=== PATIENT | female | born 1995 | race Caucasian/White ===

== ENCOUNTER 2024-03-20 13:20 | Outpatient (OUT) | payer MEDICAID, SELFPAY ==
[2024-03-20 14:44] LABS: Thyroid Stimulating Hormone 1.683 uIU/mL (0.358-3.740)
[2024-03-20 14:57] LABS: Free T4 1.15 ng/dL (0.76-1.46)
[2024-03-20 16:05] LABS: Estimated Average Glucose 126 mg/dL
== END 2024-03-20 13:21 | disposition home or self-care (01) ==
LOC: LAB 13:24
PROVIDERS: PCP Family Medicine; Visit Provider Obstetrics & Gynecology
DX: E28.2 Polycystic ovarian syndrome (principal); E88.819 Insulin resistance, unspecified
CPT/HCPCS: 36415; 83036; 84439; 84443

== ENCOUNTER 2024-05-21 15:26 | Outpatient (OUT) | payer MEDICAID, SELFPAY ==
--- OUTSIDE RECORDS SUMMARY | 2024-05-21 15:31 | XMS_ITS | CCD ---
Author Organization [facility] Care Team Providers Care Mainspring Winder Name Role Phone NON STAFF Primary Care Provider Unavailabl e MD Jalen Irving Jr Emergency Provider Blunt, Matty M Attending Unavailable Blunt, Matty M Primary Care Unavailable Blunt, Matty M Attending Unavailable Blunt, Matty M Primary Care Unavailable Abraham Blanco Attending Unavailable Blunt, Matty M Primary Care Unavailable Blunt, Matty M Attending Unavailable Blunt, Matty M Primary Care Unavailable ISAURA JACKMAN Attending Unavailable ISAURA JACKMAN Attending Unavailable ISAURA JACKMAN Attending Unavailable LUZ OCAMPO Attending Unavailable DO Isaura Jackman Attending Provider Jalen Irving Jr Attending Unavailable NON STAFF Primary Care Unavailable Jalen Irving Jr Admitting Unavailable NON STAFF Primary Care Unavailable Isaura Jackman Admitting Unavailable Isaura Jackman Attending Unavailable Medications Current Medications Medication Drug Class(es) Dates Sig (Normalized) Sig (Original) hydrOXYzine hydrochloride 25 mg oral tablet (2 sources) Antihistamine Start: 01-24-2024 take 25 mg by mouth every six hours Hydroxyzine Hcl Active 25 MG PO Q6H 30 January 24, 2024 12:00am predniSONE 20 mg oral tablet (2 sources) Start: 01-24-2024 take 40 mg by mouth once daily in the morning Prednisone Active 40 MG PO Every morning 10 5 January 24, 2024 12:00am administer with food or milk Problems Active Problems Problem Classification Problem Date Documented Da te Episodic/Chronic Other endocrine disorders (1 source) Polycystic ovarian syndrome; Translations: [Polycystic ovarian syndrome] Onset: 04-19-2024 Chronic Past or Other Problems Problem Classification Problem Date Documented Da te Episodic/Chronic Allergic reactions (3 sources) Urticaria; Translations: [Urticaria, unspecified] Onset: 01-24-2024 01-24-2024 Episodic Results Test Name Value Interpretation Reference Range Facil casey Progesteroneon 04-19-2024 Progesterone 6.7 ng/mL Normal . [facility] Comment on above: Result Comment: Foll icular phase 0.1 - 0.9 Luteal phase 1.8 - 23.9 Ovulation phase 0.1 - 12.0 First trimester 11.0 - 44.3 Second trimester 25.4 - 83.3 Third trimester 58.7 - 214.0 Postmenopausal 0.0 - 0.1 Performed at: [facility] [address] [id number] Test Director: Sterling Dickson PhD, Phone: [phone] PERFORMED BY: [address] [place] [place] [address] PATHOLOGIST RAPIER INSERTION LOOM FIXER SABRINA GEE M.D. Performed By: #### P DORINA #### [facility] , Vital Signs Date Time Vital Sign Value Performing Clinician Eric schmidt 01-24-2024 02:18-0400 Body height 170.18 cm [facility] 01-24-2024 02:18-0400 Body temperature 98.5 [degF] [facility] 01-24-2024 02:18-0400 Body weight 136.3 kg [facility] 01-24-2024 02:18-0400 Diastolic blood pressure 59 mm[Hg] [facility] 01-24-2024 02:18-0400 Heart rate 84 /min [facility] 01-24-2024 02:18-0400 Respiratory rate 18 /min [facility] 01-24-2024 02:18-0400 SaO2% (BldA) [Mass fraction] 97 % [facility] 01-24-2024 02:18-0400 Systolic blood pressure 131 mm[Hg] [facility] Encounters Encounter Date Encounter Type Care Provider Facility Start: 04-19-2024 End: 04-19-2024 Patient encounter procedure [facility] [place] Work Phone: Start: 04-19-2024 End: 04-19-2024 ambulatory NON STAFF [facility] Work Phone: Start: 04-17-2024 End: 04-17-2024 ambulatory ISAURA YUE Not Available Start: 03-20-2024 End: 03-20-2024 ambulatory ISAURA YUE Not Available Start: 02-20-2024 End: 02-20-2024 ambulatory Matty M Blunt Facility:[facility] Start: 01-29-2024 End: 01-29-2024 ambulatory ISAURA YUE Not Available Start: 01-24-2024 End: 01-24-2024 Emergency department patient visit [facility] Work Phone: Start: 08-30-2023 End: 08-30-2023 ambulatory LUZ OCAMPO Not Available Start: 07-12-2023 End: 07-12-2023 ambulatory Matty M Blunt Facility:[facility] Start: 06-01-2023 End: 06-01-2023 ambulatory Abraham Blanco Facility:[facility] Plan of Treatment Date Care Activity Detail Author Patient Education Hives [facility] Work Phone: Patient referral [facility] Work Phone: Progesterone [Mass/v olume] in Serum or Plasma [facility] enter Payers Date Payer Category Payer Self-pay [id number] 2023 Private Health Insurance 2022 Medicaid [id number] 2019 Unknown [id number] 1997 Unknown [id number] 1997 Unknown [id number] 1997 Unknown [id number] [id number] 1997 Unknown [id number] 1997 Unknown [id number] [id number] 1997 Unknown [id number] [id number] 1997 Unknown [id number] [id number] 1997 Unknown [id number] [id number] Private Health Insurance [employer] [id number] Unknown [place] BC/BS [id number] Unknown [id number] Unknown [id number] Social History Date Type Detail Facility Start: 01-24-2024 End: 02-20-2024 Tobacco smoking status NHIS Never smoked tobacco (finding) [facility] Start: 1995 Sex Assigned At Female F [facility] Evaluation note Note Date & Type Note Facility Evaluation note No assessment information availa [facility] Work Phone: Chief Complaint and Reason for Visit Chief Complaint hives Chief Complaint hives See order Advance Directives No Advanced Directives Records Found Advance Directive Response Recorded Date/ Time Advance Directives No December 06 1:47pm Summary Purpose Family History No Family History Records FoundNo Family History Records FoundNo Family History Records Found Additional Source Comments Care Teams (unrecognized sec tion and content) Team Status: Active Member Role Status Dates NON STAFF Primary Care Provider Active Team Status: Inactive Member Role Status Dates NON STAFF Primary Care Provider Active Start: January 24, 2024 End: January 24, 2024 Jalen Irving Jr, MD Emergency Provider Active Start: January 24, 2024 End: January 24, 2024 Team Status: Inactive Member Role Status Dates NON STAFF Primary Care Provider Active Start: April 19, 2024 End: April 19, 2024 Isaura Jackman DO Attending Provider Active Start : April 19, 2024 End: April 19, 2024 Goals (unrecognized section and content) Goals may be documented in a n alternate sectionGoals may be documented in an alternate section INFORMATION SOURCE (unrecogn ized section and content) DATE CREATED AUTHOR 02/27/2024 [facility] DATE CREATED AUTHOR AUTHOR'S ORGANIZ ATION 04/19/2024 [facility] EPIC DATE CREATED AUTHOR AUTHOR'S ORGANIZ ATION 04/28/2024 [facility] y[facility] Group FOR RECORDS PERTAINING TO PATIENTS WHO ARE OR HAVE BEEN ENROLLED IN A CHEMICAL DEPENDENCY/SUBSTANCEABUSE PROGRAM, SOME INFORMATION MAY BE OMITTED. This clinical summary was aggregated from multiple sources. Caution should be exercised in using it in the provision of clinical care. This summary normalizes information from multiple sources, and as a consequence, information in this document may materially change the coding, format and clinical context of patient data. In addition, data may be omitted in some cases. CLINICAL DECISIONS SHOULD BE BASED ON THE PRIMARY CLINICAL RECORDS. [facility] [employer] [facility]. provides no warranty or guarantee of the accuracy or completeness of information in this document.
[2024-05-23 08:12] LABS: Progesterone 12.9 ng/mL (.)
== END 2024-05-21 15:27 | disposition home or self-care (01) ==
LOC: LAB 15:28
PROVIDERS: PCP Family Medicine; Visit Provider Obstetrics & Gynecology
DX: E28.2 Polycystic ovarian syndrome (principal); N97.0 Female infertility associated with anovulation
CPT/HCPCS: 36415; 84144

== ENCOUNTER 2024-07-28 22:00 | Outpatient (REF) | payer MEDICAID, SELFPAY ==
--- OUTSIDE RECORDS SUMMARY | 2024-07-28 22:04 | XMS_ITS | CCD ---
Author Organization [facility] Care Team Providers Care Technology Infusion Specialist Name Role Phone NON STAFF Primary Care Provider Unavailvaishali e MD Jalen Irving Jr Emergency Provider Matty Amato Attending Unavailable Blunt, Matty Caruso Primary Care Unavailable Blunt, Matty Caruso Attending Unavailable Blunt, Matty Caruso Primary Care Unavailable Abraham Blanco Attending Unavailable Blunt, Matty Caruso Primary Care Unavailable Blunt, Matty Caruso Attending Unavailable Lm, Matty Caruso Primary Care Unavailable DO Isaura Jackman Attending Provider Matty Amato MD Primary Care Provider [phone] LUZ OCAMPO Attending Unavailable ISAURA JACKMAN Attending Unavailable ISAURA JACKMAN Attending Unavailable ISAURA JACKMAN Attending Unavailable SADA DYE Attending Unavailable Jalen Irving Jr Admitting Unavailable NON STAFF Primary Care Unavailable Jalen Irving Jr Attending Unavailable Isaura Jackman Attending Unavailable Isaura Jackman Admitting Unavailable NON STAFF Primary Care Unavailable Ramon Pozo Attending Unavailab le Ramon Pozo Admitting Unavailab le NON STAFF Primary Care Unavailable Medications Current Medications Medication Drug Class(es) Dates Sig (Normalized) Sig (Original) hydrOXYzine hydrochloride 25 mg oral tablet (6 sources) Antihistamine Start: 01-24-2024 hydrOXYzine HCl (Atarax) 25 MG tablet Take 12.5 mg by mouth 1 (one) time 01/24/2024 Active Start: 01-24-2024 take 25 mg by mouth every six hours Hydroxyzine Hcl Active 25 MG PO Q6H January 24, 2024 12:00am 24 hr metFORMIN hydrochloride 500 mg extended release oral tablet (4 sources) Biguanide Start: 03-04-2024 End: 03-04-2025 take 1 tablet by mouth every twenty-four hours at mealtime metFORMIN XR (Glucophage-XR) 500 MG 24 hr tablet Indications: Weight gain , Insulin resistance Take 1 tablet (500 mg) by mouth in the evening. Take with meals Do not crush, chew, or split. 30 tablet 11 03/04/2024 03/04/2025 Active pantoprazole 40 mg delayed release oral tablet (4 sources) Proton Pump Inhibitor take 1 tablet by mouth in the morning pantoprazole (ProtoNix) 40 MG EC tablet Take 40 mg by mouth in the morning. Active phentermine hydrochloride 37.5 mg oral tablet (6 sources) Sympathomimetic Amine Anorectic Start: 04-17-2024 End: 09-15-2024 take 1 tablet by mouth before mealtime phentermine (Adipex-P) 37.5 MG tablet Indications: Encounter for weight management Take 1 tablet (37.5 mg) by mouth in the morning. Take before meals. 90 tablet 06/17/2024 09/15/2024 Active predniSONE 20 mg oral tablet (2 sources) Start: 01-24-2024 take 40 mg by mouth once daily in the morning Prednisone Active 40 MG PO Every morning 10 January 24, 2024 12:00am administer with food or milk Problems Active Problems Problem Classification Problem Date Documented Da te Episodic/Chronic Administrative/social admission (2 sources) Patient encounter status; Translations: [Persons encountering health services in other specified circumstances] 06-17-2024 Episodic Other endocrine disorders (1 source) Polycystic ovarian syndrome; Translations: [Polycystic ovarian syndrome] Onset: 04-19-2024 Chronic Other nutritional; endocrine; and metabolic disorders (2 sources) Weight increased; Translations: [Abnormal weight gain] 06-17-2024 Episodic Past or Other Problems Problem Classification Problem Date Documented Da te Episodic/Chronic Allergic reactions (3 sources) Urticaria; Translations: [Urticaria, unspecified] Onset: 01-24-2024 01-24-2024 Episodic Results Test Name Value Interpretation Reference Range Facil ity ALL PROGESTERONEon PROGESTERONE 12.9 ng/mL . [facility] are Comment on above: Follicular phase 0.1 - 0.9 Luteal phase 1.8 - 23.9 Ovulation phase 0.1 - 12.0 First trimester 11.0 - 44.3 Second trimester 25.4 - 83.3 Third trimester 58.7 - 214.0 Postmenopausal 0.0 - 0.1 Performed at: [facility] [id number] Lathe Tender: Sterling Dickson PhD, Phone: [phone] [facility] Healthcar e Progesteroneon 04-19-2024 Progesterone 6.7 ng/mL Normal . [facility] Comment on above: Result Comment: Foll icular phase 0.1 - 0.9 Luteal phase 1.8 - 23.9 Ovulation phase 0.1 - 12.0 First trimester 11.0 - 44.3 Second trimester 25.4 - 83.3 Third trimester 58.7 - 214.0 Postmenopausal 0.0 - 0.1 Performed at: [facility] [address] [id number] Lathe Tender: Sterling Dickson PhD, Phone: [phone] PERFORMED BY: [address] [place] [address] PATHOLOGIST MAINTAINER [employer] SABRINA GEE M.D. Performed By: #### P DORINA #### [facility] , Vital Signs Date Time Vital Sign Value Performing Clinician Facility 06-17-2024 11:42-0500 Body mass index (BMI) [Ratio] 43.23 kg/m2 Sada NUNEZ Work Phone: [facility] 06-17-2024 11:42-0500 Body weight 125.19 kg Sada NUNEZ Work Phone: [facility] 06-17-2024 11:42-0500 Diastolic blood pressure 76 mm[Hg] Sada NUNEZ Work Phone: [facility] 06-17-2024 11:42-0500 Systolic blood pressure 120 mm[Hg] Sada NUNEZ Work Phone: [facility] 01-24-2024 02:18-0400 Body height 170.18 cm [facility] 01-24-2024 02:18-0400 Body temperature 98.5 [degF] [facility] 01-24-2024 02:18-0400 Body weight 136.3 kg [facility] 01-24-2024 02:18-0400 Diastolic blood pressure 59 mm[Hg] [facility] 01-24-2024 02:18-0400 Heart rate 84 /min [facility] 01-24-2024 02:18-0400 Respiratory rate 18 /min [facility] 01-24-2024 02:18-0400 SaO2% (BldA) [Mass fraction] 97 % [facility] 01-24-2024 02:18-0400 Systolic blood pressure 131 mm[Hg] [facility] Encounters Encounter Date Encounter Type Care Provider Facility Start: 07-25-2024 ambulatory Ramon Thurston acility:[facility] Start: 06-17-2024 End: 06-17-2024 Bamboo flowsheet Sada NUNEZ Work Phone: [facility] Start: 06-17-2024 End: 06-17-2024 Bamboo flowsheet Sada NUNEZ Work Phone: [facility] Start: 06-17-2024 End: 06-17-2024 Office outpatient visit 15 minutes Sada NUNEZ Work Phone: [facility] Comment on above: Weight gain; Encounter for weight management Start: 06-17-2024 End: 06-17-2024 ambulatory SADA DYE Not Available Start: 05-21-2024 End: 05-23-2024 [facility] Result Encounter Isaura Augustina DO Work Phone: [facility] Unsolicited Start: 05-21-2024 End: 05-23-2024 [facility] Result Encounter Isaura Augustina DO Work Phone: [facility] Unsolicited Start: 04-19-2024 End: 04-19-2024 Patient encounter procedure [facility] Main [place] Work Phone: Start: 04-19-2024 End: 04-19-2024 ambulatory NON STAFF [facility] Work Phone: Start: 04-17-2024 End: 04-17-2024 ambulatory ISAURA AUGUSTINA Not Available Start: 03-20-2024 End: 03-20-2024 ambulatory ISAURA AUGUSTINA Not Available Start: 02-20-2024 End: 02-20-2024 ambulatory Matty M Blunt Facility:[facility] Start: 01-29-2024 End: 01-29-2024 ambulatory ISAURA AUGUSTINA Not Available Start: 01-24-2024 End: 01-24-2024 Emergency department patient visit [facility] Work Phone: Start: 08-30-2023 End: 08-30-2023 ambulatory LUZ OCAMPO Not Available Start: 07-12-2023 End: 07-12-2023 ambulatory Matty M Blunt Facility:[facility] Start: 06-01-2023 End: 06-01-2023 ambulatory Abraham Blanco Facility: [facility] Procedures Date Procedure Procedure Detail Performing Clinician Start: 05-21-2024 ALL PROGESTERONE Isaura Augustina DO Work Phone: Plan of Treatment Date Care Activity Detail Author Start: 07-28-2024 End: 07-28-2024 Patient encounter procedure 07/28/2024 3:00 PM EST Office Visit [facility] [address] [place] [id number] Sada Dye PA [address] [place] [address] [place] [address] [facility] Start: 06-17-2024 End: 06-17-2024 Patient encounter procedure 06/17/2024 11:20 AM EST Office Visit [facility] [address] [place] [id number] Sada Dye PA [address] [place] [address] [place], [place] [id number] Arrived [facility] Comment on above: Arrived Patient Education Hives [facility] Work Phone: Patient referral [facility] Work Phone: Progesterone [Mass/volume] in Serum or Plasma [facility] Payers Date Payer Category Payer Self-pay [id number] 2023 Private Health Insurance 2022 Medicaid [id number] 2022 Medicaid [id number] 2019 Unknown [id number] 1997 Unknown [id number] [id number] 1997 Unknown [id number] [id number] 1997 Unknown [id number] [id number] 1997 Unknown [id number] [id number] 1997 Unknown [id number] 2.16.840.1.006844.3.579.2.9 1997 Unknown [id number] 2.16.840.1.865715.3.579.2.9 1997 Unknown [id number] 2.16.840.1.201997.3.579.2.9 1997 Unknown [id number] 2.16.840.1.125527.3.579.2.9 1997 Unknown [id number] [id number] Private Health Insurance [employer] [id number] Unknown [place] BC/BS [id number] Unknown [id number] [id number] Unknown [id number] [id number] Unknown [id number] [id number] Social History Date Type Detail Facility Start: 05-03-2023 End: 01-24-2024 Tobacco smoking status NHIS Never smoked tobacco (finding) [facility] Start: 1995 Sex Assigned At Female [facility] Start: 05-03-2023 Tobacco use and exposure Smokeless tobacco non-user [facility] Start: 04-17-2024 End: 06-17-2024 Alcoholic beverage intake Current drinker of alcohol (finding) [facility] Start: 08-30-2023 History of Social function [facility] Start: 08-30-2023 Alcohol Use Disorder Identification Test - Consumption [AUDIT-C] [facility] How often to you hav e a drink containing alcohol? Monthly or less [facility] How many standard dr inks containing alcohol do you have on a typical day? 1 or 2 [facility] How often do you hav e 6 or more drinks on 1 occasion? Never [facility] Start: 05-14-2023 Alcohol Comment Alcohol; Social Caffeine: 1-2 cups per day [facility] Start: 1995 Sex assigned at Not on file [facility] History of Present illness Narrative 06-17-2024 MAYRA Lim - 06/17/2024 11:20 AM EST Note Date & Type Note Facility 06-17-2024 History of Presen t illness Narrative Reason for Appointment: Patient ID: Johanna Ricks is a 28 y.o. female who presents for Weight Management (Pt present today for Adipex #3) Patient presents today for Weight Management Consult. MEDICATIONS Current Outpatient Medications Medication Instructions hydrOXYzine HCl (ATARAX) 12.5 mg, Oral, Once metFORMIN XR (GLUCOPHAGE-XR) 500 mg, Oral, Daily with evening meal, Do not crush, chew, or split. pantoprazole (PROTONIX) 40 mg, Oral, Daily phentermine (ADIPEX-P) 37.5 mg, Oral, Daily before breakfast phentermine (ADIPEX-P) 37.5 mg, Oral, Daily before breakfast ALLERGIES No Known Allergies PROBLEMS Active Ambulatory Problems Diagnosis Date Noted No Active Ambulatory Problems Resolved Ambulatory Problems Diagnosis Date Noted No Resolved Ambulatory Problems Past Medical History: Diagnosis Date History of vaccination against human papillomavirus HSV-1 infection HISTORY PAST MEDICAL HISTORY SOCIAL HISTORY Past Medical History: Diagnosis Date History of vaccination against human papillomavirus 3 series in 2011 HSV-1 infection Social History Tobacco Use Smoking status: Never Smokeless tobacco: Never Vaping Use Vaping status: Never Used Substance Use Topics Alcohol use: Yes Comment: Alcohol; Social Caffeine: 1-2 cups per day Drug use: Never FAMILY HISTORY Family History Problem Relation Name Age of Onset Skin cancer Paternal Grandmother Other (Internal organ cancer) Paternal Grandmother SURGICAL HISTORY Past Surgical History: Procedure Laterality Date ADENOIDECTOMY INNER EAR SURGERY tubes in ears PAP SMEAR 10/26/2020 nilm WISDOM TOOTH EXTRACTION wisdom teeth REVIEW OF SYSTEMS Review of Systems: Review of Systems Constitutional: Negative. HENT: Negative. Eyes: Negative. Respiratory: Negative. Cardiovascular: Negative. Gastrointestinal: Negative. Genitourinary: Negative. Musculoskeletal: Negative. Skin: Negative. Neurological: Negative. All other systems reviewed and are negative. Hematological: Negative. Endocrine: Negative. Allergic/Immunologic: Negative. OBJECTIVE Objective: Physical Exam Constitutional: Appearance: Normal appearance. She is normal weight. HENT: Head: Normocephalic. Cardiovascular: Rate and Rhythm: Normal rate. Pulses: Normal pulses. Pulmonary: Effort: Pulmonary effort is normal. Breath sounds: Normal breath sounds. Abdominal: Palpations: Abdomen is soft. Musculoskeletal: General: Normal range of motion. Neurological: General: No focal deficit present. Mental Status: She is alert and oriented to person, place, and time. Psychiatric: Mood and Affect: Mood normal. Behavior: Behavior normal. Thought Content: Thought content normal. Judgment: Judgment normal. Vitals and nursing note reviewed. Vitals: Estimated body mass index is 43.23 kg/m as calculated from the following: Height as of 24: 5' 7 . Weight as of this encounter: 276 lb. BP: 120/76 No LMP recorded. ASSESSMENT & PLAN ICD-10-CM 1. Weight gain R63.5 2. Encounter for weight management Z76.89 phentermine (Adipex-P) 37.5 MG tablet Patient presents today for 3rd Adipex prescription. Patient desires additional weigh loss and she is currently taking metformin along with working out to achieve further results. The possibility of Ozempic for future use has been discussed. Weight and blood pressure has been captured and it has been discussed/reiterated the importance of keeping a food journal, proper nutrition/diet, and exercise regimen. Patient verbalized understanding. Patient has lost more than 5% of her initial body weight Follow Up: Patient is to return to the office in 3 month for further evaluation to assess patient progress. Weight and blood pressure will need to be obtained I Documented by MAYRA Lim on behalf of: MAYAR Lim documented in this encounter [facility] Evaluation note Note Date & Type Note Facility Evaluation note [facility]: Evaluation note Note Date & Type Note Facility Evaluation note Diagnosis Weight gain Other symptoms concerning nutrition, metabolism, and development Encounter for weight management documented in this encounter [facility] Chief Complaint and Reason for Visit Chief [...] April 19, 2024 End: April 19, 2024 Technology Infusion Specialist Relationship Specialty [place] [address] [facility] [address] [place] [address] PCP - General Family Medicine 05/03/23 Technology Infusion Specialist Relationship Specialty [place] [address] [place] [address] PCP - General Family Medicine 05/03/23 Technology Infusion Specialist Relationship Specialty Start [place] [address] [place] [address] PCP - General Family Medicine 05/03/23 Goals (unrecognized section and content) Goals may be documented in a n alternate sectionGoals may be documented in an alternate section INFORMATION SOURCE (unrecogn ized section and content) DATE CREATED AUTHOR 02/27/2024 [facility] DATE CREATED AUTHOR AUTHOR'S ORGANIZ ATION 06/18/2024 [facility] Specialists EPIC DATE CREATED AUTHOR AUTHOR'S ORGANIZ ATION 07/28/2024 [facility] y[facility] Group Reason for Visit (unrecogniz ed section and content) Reason Comments Weight Management Pt present today for Adipex #3 FOR RECORDS PERTAINING TO PATIENTS WHO ARE [...] BE BASED ON THE PRIMARY CLINICAL RECORDS. [employer] provides no warranty or guarantee of the accuracy or completeness of information in this document.
== END 2024-07-28 22:01 | disposition home or self-care (01) ==
LOC: LAB 22:00
PROVIDERS: PCP Family Medicine; Visit Provider Physician Assistant
DX: Z01.419 Encounter for gynecological examination (general) (routine) without abnormal findings (principal)
CPT/HCPCS: 88175

== ENCOUNTER 2025-07-30 19:09 | Outpatient (REF) | payer MEDICAID, SELFPAY ==
--- OUTSIDE RECORDS SUMMARY | 2025-07-30 11:50 | XMS_ITS | Encounter Summary ---
Author Organization [facility] Address [address] [place] [address] Care Team Providers Care Office Clerk Name Role Phone Matty Amato MD Primary Care Provider [phone] Reason for Visit * ReasonCommentsWell Women Visit Encounter Details DateTypeDepartmentCare Team (Latest Contact Info)Spiwcwutxyh78/18/2025 11:50 AM ESTOffice Visit [facility] [address] [place] [address] Sada Fung PA [address] [place] [address] Well woman exam with routine gynecological exam; Vaginal discharge; STD exposure; Weight gain; Insulin resistance; Encounter for weight management Social History Tobacco UseTypesPacks/DayYears UsedDateSmoking Tobacco: NeverSmokeless Tobacco: NeverAlcohol UseStandard Drinks/WeekCommentsYes0 (1 standard drink = 0.6 oz pure alcohol)Alcohol; Social Caffeine: 1-2 cups per dayAUDIT-CAnswerDate RecordedQ1: How often do you have a drink containing alcohol?Monthly or less08/30/2023Q2: How many drinks containing alcohol do you have on a typical day when you are drinking?1 or Q3: How often do you have six or more drinks on one occasion?Never08/30/2023HQ-2AnswerDate RecordedPatient Health Questionnaire-2 [id number] and Gender InformationValueDate Recorded Sex Assigned at BirthNot on fileLegal VoaBjzdkx88/15/2023 7:22 PM EDTGender IdentityNot on fileSexual OrientationNot on filedocumented as of this encounter Progress Notes * MAYRA Lim - 07/30/2025 11:50 AM EST Reason for Appointment: Patient ID: Johanna Ricks is a 30 y.o. female who presents for Well Women Visit Patient presents today for Annual Exam. MEDICATIONS Current Outpatient Medications Medication Instructions azithromycin (Zithromax) 250 MG tablet Take 2 tabs (500 mg) by mouth today, than 1 tab (250 mg) daily for 4 days. hydrOXYzine HCl (ATARAX) 12.5 mg, Once metFORMIN XR (GLUCOPHAGE-XR) 500 mg, Oral, Daily with evening meal, Do not crush, chew, or split. 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 HENT: Negative. Eyes: Negative. Respiratory: Negative. Cardiovascular: Negative. Gastrointestinal: Negative. Genitourinary: Negative. Musculoskeletal: Negative. Skin: Negative. Neurological: Negative. All other systems reviewed and are negative. Hematological: Negative. Endocrine: Negative. Allergic/Immunologic: Negative. OBJECTIVE Objective: Physical Exam Constitutional: Appearance: Normal appearance. She is well-developed. Genitourinary: Vulva normal. Cardiovascular: Rate and Rhythm: Normal rate and regular rhythm. Pulmonary: Effort: Pulmonary effort is normal. Breath sounds: Normal breath sounds. Abdominal: General: Bowel sounds are normal. There is no distension. Palpations: Abdomen is soft. Tenderness: There is no abdominal tenderness. There is no guarding or rebound. Musculoskeletal: General: No swelling. Normal range of motion. Right lower leg: No edema. Left lower leg: No edema. Neurological: Mental Status: She is alert and oriented to person, place, and time. Skin: General: Skin is warm and dry. Psychiatric: Mood and Affect: Mood normal. Behavior: Behavior normal. Vitals and nursing note reviewed. Exam conducted with a welcome wagon hostess present. Vitals: Estimated body mass index is 43.16 kg/m?? as calculated from the following: Height as of 04/17/24: 5' 7 . Weight as of 08/22/24: 275 lb 9.2 oz. BP: No LMP recorded. Assessment/Plan ICD-10-CM 1. Well woman exam with routine gynecological exam Z01.419 Pap Smear 2. Vaginal discharge N89.8 SURESWAB(R) ADVANCED VAGINITIS PLUS, TMA 3. STD exposure Z20.2 CHLAMYDIA TRACHOMATIS (GENITO/STI) Neisseria gonorrhea DNA probe, direct Assessment/Plan Annual Exam: Patient presents today for an annual exam. Patient states she is doing well and has no complaints. Pap was obtained without difficulty. Orders Placed This Encounter Procedures CHLAMYDIA TRACHOMATIS (GENITO/STI) Neisseria gonorrhea DNA probe, direct Patient wishes to restart adipex, pt will follow up in one month. She had been on it previously andstopped due to taking fertility medication. She states she is no longer taking any fertility and wishes to restart adipex and metformin Follow Up: Patient is to return in one year for annual unless needed otherwise. Documented by Shabnam Brown LPN on behalf of: MAYRA Lim [1] No Known Allergies [2] Past Medical History: Diagnosis Date History of vaccination against human papillomavirus 3 series in 2012 HSV-1 infection [3] Family History Problem Relation Name Age of Onset Skin cancer Paternal Grandmother Other (Internal organ cancer) Paternal Grandmother [4] Past Surgical History: Procedure Laterality Date ADENOIDECTOMY INNER EAR SURGERY tubes in ears PAP SMEAR 10/26/2020 nilm WISDOM TOOTH EXTRACTION wisdom teeth documented in this encounter Plan of Treatment DateTypeDepartmentCare Team (Latest Contact Info)Keeivteeyom83/15/2026 1:30 PM ESTOffice Visit [facility] [address] [place] [address] Deisy Bermudez, SABINO [address] [place] [address] NameTypePriorityAssociated DiagnosesOrder SchedulePap SmearPathology and CytologyRoutine Well woman exam with routine gynecological exam Ordered: 07/30/2025SURESWAB(R) ADVANCED VAGINITIS PLUS, TMAPathology and CytologyRoutine Vaginal discharge Ordered: 07/30/2025HLAMYDIA TRACHOMATIS (GENITO/STI)LabRoutine STD exposure Ordered: 07/30/2025Neisseria gonorrhea DNA probe, directLabRoutine STD exposure Ordered: 07/30/2025documented as of this encounter Visit Diagnoses Diagnosis Well woman exam with routine gynecological exam Routine gynecological examination Vaginal discharge Leukorrhea, not specified as infective STD exposure Weight gain Other symptoms concerning nutrition, metabolism, and development Insulin resistance Other abnormal glucose Encounter for weight management documented in this encounter Care Teams Team MemberRelationshipSpecialtyStart [place] [address] [place] [address] PCP - GeneralFamily Medicine05/03/23documented as of this encounter
--- OUTSIDE RECORDS SUMMARY | 2025-07-30 19:13 | XMS_ITS | Encounter Summary ---
Author Organization [facility] Address [address] [place] [address] Care Team Providers Care Tape Maker Name Role Phone Matty Amato MD Primary Care Provider [phone] Encounter Details DateTypeDepartmentCare Team (Latest Contact Info)Yqqyntzeqlz91/18/2025Bamboo flowsheet [facility] [address] [place] [address] Sada Fung PA [address] [place], [facility] Social History Tobacco UseTypesPacks/DayYears UsedDateSmoking Tobacco: NeverSmokeless [...] have six or more drinks on one occasion?Never4PHQ-2AnswerDate RecordedPatient Health Questionnaire-2 [id number] and Gender InformationValueDate Recorded Sex Assigned at BirthNot on fileLegal LzpAqfbvy98/15/2023 7:22 PM EDTGender IdentityNot on fileSexual OrientationNot on filedocumented as of this encounter Plan of Treatment DateTypeDepartmentCare Team (Latest Contact Info)Usynsfwbljs54/ 1:30 PM ESTOffice Visit [facility] [address] [place] [address] Deisy Bermudez, SABINO [address] [place] [address] documented as of this encounter Visit Diagnoses Not on filedocumented in this encounter Care Teams Team MemberRelationshipSpecialtyStart [place] [address] [facility] [address] [place] [address] PCP - GeneralFamily Medicine05/03/23documented as of this encounter
--- OUTSIDE RECORDS SUMMARY | 2025-07-30 19:13 | XMS_ITS | Clinical Summary ---
Author Organization [facility] Address [address] [place] [address] Care Team Providers Care Scrap Kettle Tender Name Role Phone Matty Amato MD Primary Care Provider [phone] Allergies No known active allergies Medications MedicationSigDispense QuantityRefillsLast FilledStart DateEnd DateStatus pantoprazole (ProtoNix) 40 MG EC tablet Take 40 mg by mouth in the morning.Active hydrOXYzine HCl (Atarax) 25 MG tablet Take 12.5 mg by mouth 1 (one) time01/24/2024ctive azithromycin (Zithromax) 250 MG tablet Indications:Acute upper respiratory infectionTake 2 tabs (500 mg) by mouth today, than 1 tab (250 mg) daily for 4 days. 6 tablet 5Active metFORMIN XR (Glucophage-XR) 500 MG 24 hr tablet Indications:Weight gain,Insulin resistanceTake 1 tablet (500 mg) by mouth in the evening. Take with meals Do not crush, chew, or split. 30 tablet /6Active phentermine (Adipex-P) 37.5 MG tablet Indications:Encounter for weight managementTake 1 tablet (37.5 mg) by mouth in the morning. Take before meals. 30 tablet /6Active metFORMIN XR (Glucophage-XR) 500 MG 24 hr tablet Indications:Weight gain,Insulin resistanceTake 1 tablet (500 mg) by mouth in the evening. Take with meals Do not crush, chew, or split. 30 tablet /Discontinued(Reorder) phentermine (Adipex-P) 37.5 MG tablet Indications:Encounter for weight managementTake 1 tablet (37.5 mg) by mouth in the morning. Take before meals. 90 tablet Discontinued(Reorder) Active Problems No known active problems Encounters DateTypeDepartmentCare FsfeIqadpmzimul33/18/2025 11:50 AM ESTOffice Visit [facility] [address] [place] [address] Sada Fung PA Well woman exam with routine gynecological exam; Vaginal discharge; STD exposure; Weight gain; Insulin resistance; Encounter for weight ewcyetjevy63/18/2025amboo flowsheet [facility] [address] [facility] [place] [address] Sada Fung PA from Last 3 Months Family History Medical HistoryRelationNameCommentsInternal organ cancerPaternal GrandmotherSkin cancerPaternal GrandmotherRelationNameStatusCommentsFatherDeceasedMotherAlive Paternal GrandmotherSister1 sister Social History Tobacco UseTypesPacks/DayYears UsedDateSmoking Tobacco: NeverSmokeless Tobacco: Never Tobacco Cessation:Counseling Given: Yes Alcohol UseStandard Drinks/WeekCommentsYes0 (1 standard drink = 0.6 oz pure alcohol)Alcohol; Social Caffeine: 1-2 cups per dayAUDIT-CAnswerDate RecordedQ1: How often do you have a drink containing alcohol?Monthly or less08/30/2023Q2: How many drinks containing alcohol do you have on a typical day when you are drinking?1 or Q3: How often do you have six or more drinks on one occasion?Never08/30/2023HQ-2AnswerDate RecordedPatient Health Questionnaire-2 [id number] and Gender InformationValueDate Recorded Sex Assigned at BirthNot on fileLegal LlxXznslp21/15/2023 7:22 PM EDTGender IdentityNot on fileSexual OrientationNot on file Last Filed Vital Signs Vital SignReadingTime TakenCommentsBlood Hvfmicpx445/8212 3:10 PM EST Quyvv06456/10/2025 10:57 AM UIVAwhwhvfesvu01.2 ??C (97.1 ??F)08/22/2024 10:57 AM ESTRespiratory Rate--Oxygen Zznxvxymul16%08/22/2024 10:57 AM ESTInhaled Oxygen Concentration--Tcjexy963 kg (275 lb 9.2 oz)08/22/2024 10:57 AM NAYKjjmqo236.2 cm (5' 7 )04/17/2024 12:12 PM EDTBody Mass Index43.16004/17/2024 12:12 PM EDT Plan of Treatment DateTypeDepartmentCare Team (Latest Contact Info)Upjubtpllgw41/15/2026 1:30 PM ESTOffice Visit [facility] [address] [place] [address] Deisy Bermudez, SABINO [address] [place] [address] Insurance Care Teams Team MemberRelationshipSpecialtyStart [place] [address] [address] [facility] [address] [place] [address] PCP - GeneralFamily Medicine05/03/23
== END 2025-07-30 19:10 | disposition home or self-care (01) ==
LOC: LAB 19:09
PROVIDERS: PCP Family Medicine; Visit Provider Physician Assistant
DX: Z01.419 Encounter for gynecological examination (general) (routine) without abnormal findings (principal); N89.8 Other specified noninflammatory disorders of vagina
CPT/HCPCS: 88175